=== PATIENT | male | born 1935 | race Caucasian/White ===

== ENCOUNTER → 2016-10-11 | Outpatient (CLI) | payer OTHER ==
[~2016-10-11] MED LIST: IOHEXOL 300 MG/ML 50 ML VIAL. IV ONE
[2016-10-11 11:12] LABS: CREATININE 1.1 mg/dL (0.7-1.3); GFR 64.6
--- NOTE | 2016-10-11 12:50 | RAD ---
EXAM: Carotid Doppler sonogram. HISTORY: Numbness. Paresthesia. TECHNIQUE: Doppler sonographic evaluation of the neck was performed and static images are submitted for review. FINDINGS: There is bilateral common carotid artery intimal wall thickening. There is mixed calcified and noncalcified plaque within the carotid bulbs and origins of the internal carotid arteries. The peak systolic velocity within the right common carotid artery is 120 cm/sec. The peak systolic velocities within the right proximal, mid and distal internal carotid artery are 149 cm/sec, 67 cm/sec, and 59 cm/sec, respectively. The peak systolic velocity within the left common carotid artery is 181 cm/sec. The peak systolic velocities within the left proximal, mid and distal internal carotid artery are 69 cm/sec, 70 cm/sec, and 54 cm/sec, respectively. There is normal antegrade flow within both vertebral arteries. There are enlarged bilateral neck lymph nodes, incompletely evaluated on the current exam. IMPRESSION: 1. Elevated peak systolic velocity within the right internal carotid artery. Despite a normal ICA to CCA ratio, this suggests 50-69% stenosis. 2. Elevated peak systolic velocity within the left common carotid artery, suggesting hemostatically significant stenosis. The peak systolic velocities within the left internal carotid artery do not suggest greater than 50% stenosis. 3. Neck lymphadenopathy. This can be better assessed with a neck CT. PQRS Statement: NASCET criteria were utilized for this exam.
--- NOTE | 2016-10-11 14:47 | RAD ---
EXAM: Head CT with and without contrast. HISTORY: Confusion. History of hemorrhagic stroke. TECHNIQUE: Computed tomographic images of the head were obtained prior to and following the initiation 75 cc Omnipaque 350 intravenous contrast. One or more of the following individualized dose reduction techniques were utilized for this examination: 1. Automated exposure control. 2. Adjustment of the mA and/or kV according to patient size. 3. Use of iterative reconstruction technique. COMPARISON: None. FINDINGS: There is no acute or subacute hemorrhage. There is no mass effect or midline shift. There is ventricular enlargement secondary to cerebral volume loss. There is encephalomalacia within the right frontal lobe and anterior right temporal lobe likely due to prior hemorrhage or hemorrhagic infarction. There are overlying craniectomy changes. 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 There is scattered areas of hypodensity throughout the cerebral white matter, likely due to chronic small vessel disease. The orbits, paranasal sinuses and mastoid air cells are unremarkable. No suspicious enhancing lesion is seen. IMPRESSION: 1. No acute intracranial finding. 2. Encephalomalacia within the right frontal lobe and anterior right temporal lobe, likely due to prior hemorrhage or hemorrhagic infarction. There are overlying craniectomy changes. 3. Chronic infarcts within the bilateral thalami. 4. Scattered areas of hypodensity within the cerebral white matter, likely due to chronic small vessel disease. 5. Cerebral volume loss. 6. Note is made that MRI is more sensitive for acute infarction.
== END | disposition home or self-care (01) ==
LOC: US 09:54
PROVIDERS: ATTEND Family Medicine
DX: I65.23 Occlusion and stenosis of bilateral carotid arteries (principal); I67.89 Other cerebrovascular disease; R20.0 Anesthesia of skin; R59.1 Generalized enlarged lymph nodes
CPT/HCPCS: 36415; 70470; 82565; 84520; 93880

== ENCOUNTER → 2017-05-21 | Outpatient (CLI) | payer OTHER ==
--- NOTE | 2017-05-21 17:35 | RAD ---
Sonography of the left side of the neck History: Enlarged nontender lymph node for 2 days. Findings: High-resolution sonography of the palpable lump of the left side of neck as indicated by the patient was performed. In the area of clinical concern, a hypoechoic mass is seen measuring up to 4 cm in greatest dimension. This is located inferior to the parotid gland. Internal color flow is seen within it. This is consistent with an abnormal enlarged lymph node There are additional enlarged lymph nodes in the area. IMPRESSION: Palpable lump corresponds to abnormal lymphadenopathy. The largest lymph node measures 4 cm in size with abnormal architecture. Therefore, biopsy is recommended.
== END | disposition home or self-care (01) ==
LOC: US 16:33
PROVIDERS: ATTEND Internal Medicine
DX: R59.0 Localized enlarged lymph nodes (principal)
CPT/HCPCS: 76536